=== PATIENT | male | born 1970 ===

== ENCOUNTER 2016-06-15 03:58 | Emergency (ER) | payer OTHER ==
[2016-06-15 04:14] VITALS: BP 162/108; PULSE 74; RESP 18; TEMP 98; O2SAT 99
--- NOTE | 2016-06-15 04:14 | ED PDOC ---
HPI: General Adult Time Seen by Provider: 06/15/16 04:13 Chief Complaint (Nursing): Medical Clearance Chief Complaint (Provider): clearance History Per: Patient, Other (Police) Additional Complaint(s): Patient arrives in police custody for medical and psychiatric clearance prior to incarceration. He is currently under arrest. Patient has history of chronic headaches and chronic right shoulder pain. He is requesting Advil for headache at this time. Patient offers no other complaints Past Medical History Reviewed: Historical Data, Nursing Documentation, Vital Signs Vital Signs: Last Vital Signs Temp 98 F 06/15/16 04:00 Pulse 74 06/15/16 04:00 Resp 18 06/15/16 04:00 BP 162/108 H 06/15/16 04:00 Pulse Ox 99 06/15/16 04:13 - Medical History PMH: Back Problems, HTN, Hypercholesterolemia - Surgical History Other surgeries: right shoulder surgery - Family History Family History: States: No Known Family Hx - Social History Current smoker - smoking cessation education provided: Yes Alcohol: None Drugs: Denies - Allergies Allergies/Adverse Reactions: Allergies Allergy/AdvReac Type Severity Reaction Status Date / Time No Known Allergies Allergy Verified 06/15/16 04:00 Review of Systems ROS Statement: Except As Marked, All Systems Reviewed And Found Negative Cardiovascular: Negative for: Chest Pain Musculoskeletal: Positive for: Shoulder Pain Neurological: Positive for: Headache (chronic headaches) Psych: Negative for: Suicidal ideation Physical Exam - Reviewed Nursing Documentation Reviewed: Yes Vital Signs Reviewed: Yes - Physical Exam Appears: Positive for: Well, Non-toxic, No Acute Distress Head Exam: Positive for: ATRAUMATIC, NORMAL INSPECTION Skin: Negative for: Rash Eye Exam: Positive for: Normal appearance, EOMI, PERRL Cardiovascular/Chest: Positive for: Regular Rate, Rhythm Respiratory: Positive for: Normal Breath Sounds Neurologic/Psych: Positive for: Alert, Oriented - ECG O2 Sat by Pulse Oximetry: 99 Pulse Ox Interpretation: Normal Medical Decision Making Medical Decision Makin-year-old male here for medical and psychiatric clearance. Patient was given PO motrin As per crisis counselor and psychiatrist on-call, Dr. Bridges, patient does not meet criteria for psychiatric admission. Patient is medically and psychiatrically stable for incarceration. Disposition - Clinical Impression Clinical Impression: Medical clearance for incarceration, Chronic pain - Patient ED Disposition Is Patient to be Admitted: No Counseled Patient/Family Regarding: Diagnosis, Need For Followup - Disposition Referrals: [facility] [Outside] Disposition: Discharged/Transfer to Law Enforcement Disposition Time: 04:52 Condition: STABLE Additional Instructions: Patient is medically and psychiatrically stable for incarceration. Instructions: Chronic Pain (ED)
== END 2016-06-15 05:01 ==
LOC: H.ER 03:58
DX: G89.29 Other chronic pain (principal); Z00.8 Encounter for other general examination; E78.00 Pure hypercholesterolemia, unspecified; I10 Essential (primary) hypertension

== ENCOUNTER 2017-02-04 12:46 | Emergency (ER) | payer OTHER ==
[2017-02-04 13:04] VITALS: BP 128/77; PULSE 76; RESP 18; TEMP 98.3; O2SAT 96
--- NOTE | 2017-02-04 14:32 | ED PDOC ---
HPI: Headache Time Seen by Provider: 02/04/17 13:15 Chief Complaint (Nursing): Psychiatric Evaluation Chief Complaint (Provider): headache History Per: Patient Additional Complaint(s): 46-year-old male presents to emergency department with persistent headache ongoing for 2 years. Patient had MRI of brain 2 years ago and was told that he had a pituitary adenoma. Patient was supposed to follow up with a neurologist and an chronometer tester but he hasn't done so. He states whenever he goes to his primary doctor his primary doctor "does nothing for him." Patient states when he takes tylenol it does not help the pain. He rates current headache as 8/10. He states he has had a headache every day for the past 2 years. Patient also states he has been feeling anxious and agitated for the past few months and he is also under a lot of stress. He denies suicidal ideation and homicidal ideation. PMD: Dr. José Miguel Smith Past Medical History Reviewed: Historical Data, Nursing Documentation, Vital Signs Vital Signs: Last Vital Signs Temp 98.3 F 02/04/17 12:57 Pulse 76 02/04/17 12:57 Resp 18 02/04/17 12:57 BP 128/77 02/04/17 12:57 Pulse Ox 96 02/04/17 12:57 - Medical History PMH: Back Problems - Surgical History Other surgeries: right shoulder surgery - Family History Family History: States: No Known Family Hx - Living Arrangements Living Arrangements: With Family - Social History Current smoker - smoking cessation education provided: No Alcohol: None Drugs: Denies - Allergies Allergies/Adverse Reactions: Allergies Allergy/AdvReac Type Severity Reaction Status Date / Time No Known Allergies Allergy Verified 06/15/16 04:00 Review of Systems ROS Statement: Except As Marked, All Systems Reviewed And Found Negative Neurological: Positive for: Headache (ongoing for 2 years) Psych: Positive for: Anxiety (and agitation), Other (denies suicidal or homicidal ideation) Physical Exam - Reviewed Nursing Documentation Reviewed: Yes Vital Signs Reviewed: Yes - Physical Exam Appears: Positive for: Well, Non-toxic, No Acute Distress Skin: Negative for: Rash Eye Exam: Positive for: Normal appearance Cardiovascular/Chest: Positive for: Regular Rate, Rhythm Respiratory: Positive for: Normal Breath Sounds Neurologic/Psych: Positive for: Alert, Oriented - ECG O2 Sat by Pulse Oximetry: 96 Pulse Ox Interpretation: Normal Medical Decision Making Medical Decision Makin46 year old male with headache for 2 years, also with anxiety and aggression Plan: PO motrin Patient was offered crisis consult but he declined. He reiterates that he denies suicidal or homicidal ideation. Call placed to PMD, Dr. Smith who is very familiar with patient. Dr. Smith states that patient had MRI in September of 2015 that showed 7 [address] Smith referred him to an chronometer tester and neurologist but patient never followed up. Dr. Castro requested CT head to be ordered today in the ED. This was discussed with patient and patient states he does not want to stay and wait for CT at this time. Dr. Smith made aware of this. Patient was instructed to call Dr. Smith in the morning to arrange for follow- up visit. Disposition - Clinical Impression Clinical Impression: Headache, Chronic pain - Patient ED Disposition Is Patient to be Admitted: No Counseled Patient/Family Regarding: Diagnosis, Need For Followup - Disposition Referrals: José Miguel Lemons MD [Family Provider] - Disposition: Routine/Home Disposition Time: 15:20 Condition: STABLE Additional Instructions: Tylenol or Advil for pain as needed. Call primary doctor first thing in the morning to arrange for follow-up visit. Instructions: General Headache (ED) Forms: [facility] ([place]an) Print Language: [id number]
== END 2017-02-04 19:35 | disposition home or self-care (01) ==
LOC: H.ER 12:46
DX: R51 Headache (principal); D35.2 Benign neoplasm of pituitary gland; G89.29 Other chronic pain